=== PATIENT | female | born 1965 | race American Indian/Alaskan Native ===

== ENCOUNTER 2017-05-14 10:50 | Outpatient (CLI) | payer BC ==
--- NOTE | 2017-05-14 14:19 | Ultrasound Report ---
ULTRASOUND ABDOMEN COMPLETE: Technique: Transabdominal ultrasound with color Doppler interrogation. History: Right lower quadrant abdominal pain. Findings: The liver is normal size, contour and echotexture. The gallbladder has been surgically removed. No biliary dilatation. The CBD measures 5 mm. The visualized portions of the pancreas including the head and proximal body are within normal limits. The kidneys demonstrate no hydronephrosis or mass. Cortical thickness and echogenicity are within normal limits bilaterally. The spleen and aorta are within normal limits. No aneurysmal dilatation is noted. No ascites is visualized. IMPRESSION: Unremarkable abdominal ultrasound. No clear explanation for right lower quadrant abdominal pain.
== END 2017-05-14 10:51 | disposition home or self-care (01) ==
LOC: US 10:50
PROVIDERS: ATTEND Internal Medicine
DX: R10.31 Right lower quadrant pain (principal); Z90.49 Acquired absence of other specified parts of digestive tract
CPT/HCPCS: 76700

== ENCOUNTER 2020-09-29 13:55 | Outpatient (CLI) | payer BC ==
[2020-09-29 14:59] LABS: Hemoglobin 11.5 gm/dl (10.1-14.3); Mean Corpuscular HGB Conc 33 % (30-34); Mean Corpuscular Volume 85 fl (79-97); Platelet Count 242 K/mm3 (140-440); Red Blood Count 4.15 M/mm3 (3.65-5.03); Red Cell Distribution Width 15.4 % (13.2-15.2)
[2020-09-29 15:13] LABS: Alanine Aminotransferase 6 units/L (7-56); Albumin 4.1 g/dL (3.9-5); Blood Urea Nitrogen 8 mg/dL (7-17); Calcium 9.2 mg/dL (8.4-10.2); HDL Cholesterol 91 mg/dL (40-59); Hemolysis Index 1; LDL Cholesterol,Direct 113 mg/dL (50-130)
[2020-09-29 15:17] LABS: BUN/Creatinine Ratio 11
[2020-09-29 15:26] LABS: ABG Base Excess 2.1 mmol/L (-2.0-3.0); ABG HCO3 26.8 mmol/L (20.0-26.0); ABG Methemoglobin 0.4 % (0.0-1.5); ABG Oxygen Saturation 97.3 % (95.0-99.0); ABG PCO2 42.3 mm Hg; ABG PH 7.42 pH Units (7.350-7.450); ABG PO2 92.3 mm Hg (80.0-90.0)
== END 2020-09-29 13:56 | disposition home or self-care (01) ==
LOC: CARD 13:55
PROVIDERS: ATTEND Internal Medicine
DX: I10 Essential (primary) hypertension (principal); U07.1 COVID-19; J45.909 Unspecified asthma, uncomplicated; K21.9 Gastro-esophageal reflux disease without esophagitis; E78.00 Pure hypercholesterolemia, unspecified
CPT/HCPCS: 36415; 36600; 80053; 80061; 82550; 82728; 82803; 83615; 83880; 84436; 84443; 84484; 85027; 85379; 86140; 93005